=== PATIENT | male | born 1990 | race African-American/Black ===

== ENCOUNTER 2017-04-16 21:34 | Emergency (ER) | payer OTHER ==
[~2017-04-16] VITALS: Ht 180.3 cm; Wt 82.0 kg
[2017-04-16] MEDS ORDERED: KETOROLAC 60MG/2ML VIAL IM ONE (22:45)
[2017-04-16] MEDS ORDERED: IBUPROFEN 800MG TABLET PO ONE (23:00)
[2017-04-17] MEDS ORDERED: AMOXICILLIN/POTASSIUM CLAVULANATE 875/125MG TAB PO ONE
[2017-04-17] MEDS ORDERED: DEXAMETHASONE 10MG/ML 1ML VIAL IM ONE
[2017-04-17 00:31] VITALS: BP 118/76
== END 2017-04-17 00:33 | disposition home or self-care (01) ==
LOC: ER 21:35
DX: J02.9 Acute pharyngitis, unspecified (principal); H66.93 Otitis media, unspecified, bilateral
CPT/HCPCS: 96372; 99283; J1100